=== PATIENT | female | born 2000 | race Caucasian/White ===

== ENCOUNTER 2022-12-08 21:35 | Emergency (ER) | payer OTHER ==
[2022-12-08 22:56] LABS: Bacteria/HPF None Seen HPF (None Seen); Bilirubin Negative (Negative); Blood, Urine Negative (Negative); CAUTI Indications for Culture Dysuria,urgency,freq; Clarity Clear (Clear); Glucose, Urine (Dipstick) Normal (Negative); Ketone, Urine Negative (Negative); Leukocyte Negative Leu/uL (Negative); Nitrite Negative (Negative); Protein, Urine (Dipstick) 100 mg/dL (Neg-Trace); RBC/HPF 0-3 HPF (0-3); Specific Gravity, Urine 1.016 (1.002-1.036); Urobilinogen Normal mg/dL (Less than 2); WBC/HPF 0-3 HPF (0-3); pH, Urine 6.5 (5.0-9.0)
[2022-12-08 22:57] LABS: Urine Culture Reflex No No
== END 2022-12-08 22:57 | disposition home or self-care (01) ==
LOC: ERS 21:35
DX: N39.0 Urinary tract infection, site not specified (principal)
CPT/HCPCS: 81001; 99283